=== PATIENT | male | born 1965 ===

== ENCOUNTER → 2021-05-21 09:09 | Outpatient (CLI) | payer OTHER, SELFPAY ==
[2021-05-21 14:22] LABS: Influenza Control Positive
[2021-05-21 20:43] LABS: SARS-CoV-2 RNA PCR Negative
== END ==
PROVIDERS: PCP Family Medicine; Visit Provider Physician Assistant
DX: Z20.822 Contact with and (suspected) exposure to COVID-19 (principal); R05.9 Cough, unspecified
CPT/HCPCS: 87804; C9803; U0003; U0005